=== PATIENT | female | born 1995 | race Caucasian/White ===

== ENCOUNTER 2021-11-06 11:31 | Emergency (ER) | payer BC, SELFPAY ==
--- NOTE | 2021-11-06 11:30 | RT.EKG_ITS ---
APPROVED REPORT Exam: Resting ECG Reason for Exam: chest pain Patient Location: E HR:84 bpm ECG Measurements Heart Rate 84 AXIS OH 122 P 70 QRSd 85 QRS 74 QT 347 T 20 QTc 410 Conclusion Sinus rhythm...normal P axis, V-rate 60- 99
[2021-11-06 11:37] VITALS: BP 123/71; PULSE 96; RESP 16; TEMP 37.4; O2SAT 99
[2021-11-06 12:45] LABS: Abs Immature Grans 0.03 10^3/uL (0.0-0.06); Absolute Basophil Count 0.03 10^3/uL (0.0-0.2); Absolute Eosinophil Count 0.09 10^3/uL (0.0-0.7); Absolute Lymphocyte Count 2.58 10^3/uL (1.2-3.4); Absolute Monocyte Count 0.77 10^3/uL (0.1-0.8); Absolute Neutrophil Count 7.52 10^3/uL (1.2-6.7); Basophils % 0.3; Eosinophils % 0.8; HCT 44.1 % (36.0-46.0); HGB 15.1 g/dL (11.2-15.7); Immature Grans % 0.3; Lymphocytes % 23.4; MCH 33.4 pg (27.0-33.0); MCHC 34.2 % (32.0-36.0); MCV 97.6 fL (80-95); MPV 9.7 fL (8.0-11.0); Neutrophils % 68.2; Platelet Count 266 10^3/uL (130-400); RBC 4.52 10^6/uL (3.93-5.22); RDW 12.1 % (11.7-14.6); WBC 11.02 10^3/uL (4.4-10.8)
[2021-11-06 13:08] LABS: ALT 26 U/L (14-59); AST 17 U/L (15-37); Albumin 4.2 g/dL (3.4-5.0); Alkaline Phosphatase 80 U/L (46-116); Anion Gap 3.7 mmol/L (3-11); BUN 11 mg/dL (7-18); Bilirubin, Total 1.4 mg/dL (0.2-1.0); CO2 29.3 mmol/L (21.0-32.0); CREATININE 0.9 mg/dL (0.55-1.02); Calcium 8.9 mg/dL (8.5-10.1); Chloride 105 mmol/L (98-107); Glucose 93 mg/dL (74-106); NT-proBNP 41 pg/mL (<300); Sodium 138 mmol/L (136-145); Troponin I < 50 ng/L (<or=60)
--- NOTE | 2021-11-06 13:11 | DI.RAD_ITS ---
Exam(s) XR RIBS RT W PA LAT CHEST EXAM: XR RIBS RT W PA LAT CHEST CLINICAL HISTORY: right rib pain and cough TECHNIQUE: COMPARISON: No exams were available for comparison FINDINGS: PA and lateral chest and 5 additional views of the right ribs were obtained. The lungs are clear, th e heart is not enlarged. No pleural effusion. No pneumothorax. No rib abnormality seen. IMPRESSION: Negative examination of the chest and right ribs RADIATION DOSE DELIVERED: Total DLP
[2021-11-06 13:24] LABS: D-Dimer 263 ng/mlFEU (<500)
[2021-11-06 13:32] VITALS: BP 111/79; PULSE 80; RESP 17; TEMP 37.3; O2SAT 98
--- NOTE | 2021-11-06 13:37 | ED.GENADUL_ITS ---
Discharge Plan Disposition Patient Disposition: HOME Condition: Stable Discharge Details Clinical Impression: Cough, Acute costochondritis Primary Care Provider: Unknown,Unknown ED Provider: Kevin Wong Home Meds and New Rx's Prescriptions: New benzonatate 200 mg capsule 200 mg PO TID PRN (Reason: cough) Qty: 30 0RF prednisone 20 mg tablet 40 mg PO DAILY Qty: 8 0RF Continued Mirena 20 mcg/24 hours (7 yrs) 52 mg Intrauterine Device INTRAUTERINE 0RF Discharge Instructions Instructions: Acute Cough (ED) Additional Instructions: Please stay well-hydrated and if you develop any fever, worsening symptoms, or further concerns please return immediately to the emergency department. So far today your work-up was unremarkable for emergent findings of your cough but we are still awaiting results from your pertussis testing. Please keep all follow- up and outpatient testing as ordered by your primary care provider in the meantime. For your associated rib pain please use [id number] lidocaine creams or patches and take as directed on packaging. Discharge Data Discharge Date/Time-TO BE ENTERED AT DEPARTURE: 11/06/21 13:50 Medical Decision Making Cough patient presenting the emergency department chief complaint of cough for the past 2 months and now has associated right-sided rib pain that is worsened over the last 2 to 3 days. Patient denies fever chills, does state pain with inspiration and cough otherwise denies all other symptoms. Physical exam shows clear lung sounds, normal cardiac exam, normal exam of the skin in the affected area but does have reproducible tenderness with palpation of the ribs and associated soft tissue. Given duration of symptoms and family history of PE along with patient being on hormonal contraception we will plan on performing labs including D-dimer. We will also consider pertussis given duration of cough but cough seems more dry than whooping but again given duration of cough will be send out pertussis. Patient is otherwise stable. We will perform plain film imaging of chest and ribs. EKG shows sinus rhythm, rate of 84, otherwise nondiagnostic. Please see physician interpretation for full review of EKG. Review of labs show a mild elevation of WBCs and neutrophils otherwise nondiagnostic. D-dimer is 263, CMP unremarkable except for slight elevation of bilirubin, negative troponin, negative BNP. Review of chest x-ray and radiologist interpretation shows no acute findings for either pulmonary or ribs. We will plan on giving patient trial of steroids for consideration of cough variant asthma and she states her primary care has arranged a PFT for next week. Patient encouraged to keep this appointment. We will also give patient prescription for Tessalon Perles to see if this helps with cough. After discussion of diagnosis and plan of care patient has no further needs, questions, or concerns and states clear understanding to return to the emergency department for any worsening symptoms. HPI General Mode of arrival: ambulatory . Date/Time Provider Initiated Documentation: 11/06/21 11:51 . Limitations to Documentation: no limitations . Information obtained by: patient, family and RN notes reviewed . History of Present Illness 25 year old F presents to the emergency department with the chief complaint of Right rib pain and cough, described as moderate, with intensity rated at 8. Quality is described as sharp, and is localized to the chest. Patient reports no radiation. Patient started experiencing this month(s) (2-cough (3 days rib pain)) and it has been constant. improves with No relieving factors improve symptom(s), Other factors that worsen symptoms (coughing) . Patient did receive the following treatments prior to arrival, other (Antihistamines, cough medication.) Related Data Home Medications Medication Instructions Recorded Confirmed benzonatate 200 mg capsule 200 mg PO TID PRN #30 cap 11/06/21 levonorgestrel 20 mcg/24 hours (7 INTRAUTERINE 11/06/21 yrs) 52 mg intrauterine device (Mirena) prednisone 20 mg tablet 40 mg PO DAILY #8 tab 11/06/21 Previous Rx's Medication Instructions Recorded benzonatate 200 mg capsule 200 mg PO TID PRN #30 cap 11/06/21 prednisone 20 mg tablet 40 mg PO DAILY #8 tab 11/06/21 Allergies Allergy/AdvReac Type Severity Reaction Status Date / Time No Known Allergies Allergy Unverified 11/06/21 11:43 General Stated Complaint: SOB JANIS: 3 Review of Systems Constitutional Constitutional: Denies chills, Denies fever(s), Denies headache(s) and Denies malaise ENT Ears, Nose, Mouth, and Throat: Denies change in voice, Denies headache(s), Denies nasal congestion, Denies nasal discharge and Denies sore throat Cardiovascular Cardiovascular: Denies chest pain, Denies pedal edema and Denies leg edema Respiratory Respiratory: Reports as per HPI, Denies chest congestion, Reports cough, Denies hemoptysis, Denies excessive phlegm production and Denies wheezing Gastrointestinal Gastrointestinal: Denies abdominal pain, Denies dyspepsia, Denies nausea and Denies vomiting Musculoskeletal Musculoskeletal: Denies back pain Neurologic Neurologic: Denies headache(s) Allergic/Immunologic Allergic/Immunologic: Denies wheezing PFSH All Active Problems (Updated 11/06/21 @ 13:41 by Kevin Wong NP) Cough (Acute) Acute costochondritis (Acute) Social History Smoking/Tobacco Use Status: Never Smoking risk assessment performed?: Yes Substance use type: does not use Exam Const General: cooperative, healthy appearing, comfortable, no acute distress, not diaphoretic and not ill appearing Nutritional Appearance: average body habitus Orientation: alert, awake and oriented x3 Limitations: mental status not altered Neck Neck: normal visual inspection, full ROM, trachea midline, supple and no anterior neck swelling Chest Chest: localized rib tenderness with anteroposterior compression right anterior- axillary line involving the 9th rib, involving the 10th rib and involving the 11th rib Resp Effort & Inspection: normal respiratory effort and able to speak in complete sentences Auscultation: clear to auscultation bilaterally Cardio Jugular venous pressure: no JVD Palpation: normal PMI Rate: regular rate Rhythm: regular rhythm Heart Sounds: S1 normal, S2 normal, no click, no gallops, no murmurs and no rubs Pulses: radial pulses present bilaterally 2+ GI Inspection: normal to inspection Palpation: nontender Skin General skin exam: no rashes or lesions noted Neuro General: patient alert, patient awake, patient oriented x3, tone normal and moves all extremities Course Vital Signs Vital signs: Vital Signs Temperature 37.4 C 11/06/21 11:37 Pulse 96 H 11/06/21 11:37 Respiratory Rate 16 11/06/21 11:37 Blood Pressure 123/71 11/06/21 11:37 Pulse Oximetry 99 11/06/21 11:37 Temperature 37.3 C 11/06/21 13:32 Temperature Source Oral 11/06/21 13:32 Pulse 80 11/06/21 13:32 Respiratory Rate 17 11/06/21 13:32 Respiratory Effort Non-Labored 11/06/21 12:41 Respiratory Depth Normal 11/06/21 12:41 Blood Pressure 111/79 11/06/21 13:32 Blood Pressure Position Sitting 11/06/21 11:37 Pulse Oximetry 98 11/06/21 13:32 Oxygen Delivery Method Room Air 11/06/21 13:32 Oxygen Flow Rate 0 11/06/21 13:32 Pain Level 8 11/06/21 11:37 Lab/Test Results Lab/Test Results: Laboratory Tests Range/Units 11/06/21 11/06/21 11/06/21 12:30 12:30 12:30 WBC (4.4-10.8) 10^3/uL 11.02 H RBC (3.93-5.22) 10^6/uL 4.52 Hgb (11.2-15.7) g/dL 15.1 Hct (36.0-46.0) % 44.1 MCV (80-95) fL 97.6 H MCH (27.0-33.0) pg 33.4 H MCHC (32.0-36.0) % 34.2 RDW (11.7-14.6) % 12.1 Plt Count (130-400) 10^3/uL 266 MPV (8.0-11.0) fL 9.7 Immature Gran % 0.3 Neutrophils % 68.2 Lymphocytes % 23.4 Monocytes % 7.0 Eosinophils % 0.8 Basophils % 0.3 Nucleated RBC % (0.0-0.3) % 0.0 Absolute Neutrophils (1.2-6.7) 10^3/uL 7.52 H Absolute Lymphocytes (1.2-3.4) 10^3/uL 2.58 Absolute Monocytes (0.1-0.8) 10^3/uL 0.77 Absolute Eosinophils (0.0-0.7) 10^3/uL 0.09 Absolute Basophils (0.0-0.2) 10^3/uL 0.03 D-Dimer (<500) ng/mlFEU 263 Sodium (136-145) mmol/L 138 Potassium (3.5-5.1) mmol/L 4.0 Chloride (98-107) mmol/L 105 Carbon Dioxide (21.0-32.0) mmol/L 29.3 Anion Gap (3-11) mmol/L 3.7 BUN (7-18) mg/dL 11 Creatinine (0.55-1.02) mg/dL 0.9 Estimated GFR/1.73 m2 (mL/min/1.73m2) >= 60.00 Glucose (74-106) mg/dL 93 Calcium (8.5-10.1) mg/dL 8.9 Total Bilirubin (0.2-1.0) mg/dL 1.4 H AST (15-37) U/L 17 ALT (14-59) U/L 26 Alkaline Phosphatase (46-116) U/L 80 Troponin I (<or=60) ng/L < 50 NT-Pro-B Natriuret Pep (<300) pg/mL 41 Total Protein (6.4-8.2) g/dL 8.0 Albumin (3.4-5.0) g/dL 4.2 POC- Test(urine) Negative
[2021-11-14 18:32] LABS: B. pertussis IgG Negative (Negative); B. pertussis Value <5.00 IU/mL
== END 2021-11-06 13:50 | disposition home or self-care (01) ==
PROVIDERS: Emergency Provider Nurse Practitioner Family
DX: R05.9 Cough, unspecified (principal); M94.0 Chondrocostal junction syndrome [Tietze]; R07.89 Other chest pain
CPT/HCPCS: 36415; 80053; 81025; 86615; 93005; 99284; 71046; 71100; 83880; 84484; 85025; 85379; 93010